=== PATIENT | female | born 1955 ===

== ENCOUNTER → 2017-09-03 | Outpatient (CLI) | payer OTHER ==
[~2017-09-03] VITALS: Ht 152.4 cm; Wt 53.5 kg
[~2017-09-03] MED LIST: CATAFLAM50 MG PO; LIPITOR20 MG PO; LIPITOR40 MG PO
== END | disposition home or self-care (01) ==
LOC: PPHC 11:43
DX: E78.4 Other hyperlipidemia (principal)

== ENCOUNTER 2018-04-01 07:10 | Outpatient (CLI) | payer OTHER | END 2018-04-01 09:03 | disposition home or self-care (01) | LOC: LAB 07:10 | DX: R03.0 Elevated blood-pressure reading, without diagnosis of hypertension (principal); Z12.11 Encounter for screening for malignant neoplasm of colon; Z13.1 Encounter for screening for diabetes mellitus ==

== ENCOUNTER 2018-04-07 07:30 | Outpatient (CLI) | payer OTHER | END 2018-04-07 08:12 | disposition home or self-care (01) | LOC: LAB 07:30 | DX: N39.0 Urinary tract infection, site not specified (principal); N95.1 Menopausal and female climacteric states; E03.8 Other specified hypothyroidism; D64.89 Other specified anemias; E78.4 Other hyperlipidemia; M81.6 Localized osteoporosis [Lequesne]; M83.3 Adult osteomalacia due to malnutrition ==

== ENCOUNTER → 2018-06-04 | Emergency (ER) | payer OTHER ==
[~2018-06-04] VITALS: Ht 157.5 cm; Wt 47.6 kg
== END | disposition left against medical advice (07) ==
LOC: ER 05:41
DX: Z53.20 Procedure and treatment not carried out because of patient's decision for unspecified reasons (principal)

== ENCOUNTER 2018-09-01 21:18 | Inpatient (IN) | payer OTHER ==
[~2018-09-01] VITALS: Ht 61 cm; Wt 5.0 kg
--- NOTE | 2018-09-01 21:28 | NUR ---
PTE ALERTA Y ORIENTADA X3, PTE REFIERE DOLOR ABDOMINAL DESDE SARAH.
--- NOTE | 2018-09-01 21:51 | NUR ---
PACIENTE ALERTA Y ORIENTADA EVALUADA POR EL DR. العلي, SE ORIENTA A PACIENTE SOBRE TRATAMIENTO MEDICO SE EXTRAEN MUESTRAS DE ALMA Y SE ADMISNITRAN MEDICAMENTOS HÉCTOR ORDEN MEDICAMENTOS HÉCTOR ORDEN MEDICA BAJO MEDIDAS ASEPTICAS. SE LE DL CONTRASTE Y SE ORIENTA SOBRE CT ABDOMINO PELVICO.
--- NOTE | 2018-09-02 00:28 | NUR ---
SE ORIENTA PACIENTE SOBRE TRATAMIENTO MEDICO EL CUAL REFIERE ENTENDER, AREA DE VENOPUNCION PATENTE Y NAOMI DE EDEMA BAJANDO LIQUIDOS INTRAVENOSO. PACIENTE SIN DOLOR SE MANTIENE BAJO OBSERVACION.
--- NOTE | 2018-09-02 07:37 | NUR ---
SE RECIBE PACIENTE DEL TURNO ANTERIOR ALERTA Y ORIENTADA X3, CON BUEN PATRON RESPIRATORIO Y SIGNOS VITALES ESTABLES. AL MOMENTO NO REFIERE DOLOR. CANALIZADA EN BRAZO EZIO PATENTE Y NAOMI DE EDEMA BAJANDO UN R/L AT 100ML/HR. CONSULTADA CON . SE ZAHRAA TRANQUILA EN CAMA Y CON BARANDAS ELEVADAS. EN ESPERA DE REEVALUACION POR CONSULTA.
[2018-09-04] MEDS ORDERED: CIPRO500 MG PO (08:46)
[2018-09-04] MEDS ORDERED: OMEPRAZOLE40 MG PO (08:47)
[2018-09-04] MEDS ORDERED: METRONIDAZOLE500 MG PO (08:47)
[2018-09-04] MEDS ORDERED: PROBIOTIC1 EAC4 PO (08:47)
== END 2018-09-04 10:27 | disposition home or self-care (01) | DRG 392 ==
LOC: ER 21:18 → MEDI 09-02 09:50 → SEC-K 09-02 09:50 → MEDI 09-02 13:42
PROVIDERS: ADMIT Internal Medicine
PROC: BW40ZZZ Ultrasonography of Abdomen (ICD-10-PCS; principal; 2018-09-02)
PROC: 4A12X4Z Monitoring of Cardiac Electrical Activity, External Approach (ICD-10-PCS; 2018-09-02)
DX: K57.32 Diverticulitis of large intestine without perforation or abscess without bleeding (principal); E78.00 Pure hypercholesterolemia, unspecified; R63.0 Anorexia; E78.49 Other hyperlipidemia

== ENCOUNTER 2018-10-19 11:41 | Outpatient (CLI) | payer OTHER ==
[~2018-10-19 11:41] MED LIST changes: +CIPRO500 MG PO; +METRONIDAZOLE500 MG PO; +OMEPRAZOLE40 MG PO; +PROBIOTIC1 EAC4 PO
== END 2018-10-19 11:52 | disposition home or self-care (01) ==
LOC: LAB 11:41
DX: K57.32 Diverticulitis of large intestine without perforation or abscess without bleeding (principal)

== ENCOUNTER 2019-05-25 11:47 | Outpatient (CLI) | payer OTHER | END 2019-05-25 15:19 | disposition home or self-care (01) | LOC: TOM 11:47 | DX: E04.2 Nontoxic multinodular goiter (principal) ==

== ENCOUNTER → 2019-05-25 | Outpatient (CLI) | payer OTHER ==
[~2019-05-25] VITALS: Ht 157.5 cm; Wt 47.2 kg
[~2019-05-25] MED LIST changes: +FLONASE16 GM NASAL
== END | disposition home or self-care (01) ==
LOC: OFIC 805 07:40
DX: J31.0 Chronic rhinitis (principal); R43.8 Other disturbances of smell and taste; R29.810 Facial weakness; K11.20 Sialoadenitis, unspecified; H53.8 Other visual disturbances